=== PATIENT | female | born 1995 | race Caucasian/White ===

== ENCOUNTER 2020-10-04 13:52 | Outpatient (CLI) | payer OTHER | END 2020-10-04 13:53 | disposition home or self-care (01) | LOC: CSHULT 13:52 | PROVIDERS: ATTEND Physician Assistant | DX: N94.10 Unspecified dyspareunia (principal) | CPT/HCPCS: 76856 ==

== ENCOUNTER 2022-08-02 19:35 | Emergency (ER) | payer BC ==
[2022-08-02] MEDS ORDERED: Ketorolac Tromethamine 30 MG/ML VIAL ONE (20:33)
[2022-08-02 20:58] LABS: Pregnancy Test - Urine (BHCG) Negative (Negative); Pregu Control Background? CLEAR/WHITE (CLR/WHITE); Pregu Control Bar Appear? YES (CONTROL BAR)
== END 2022-08-02 21:10 | disposition home or self-care (01) ==
LOC: CSHERS 19:35
DX: R51.9 Headache, unspecified (principal)
CPT/HCPCS: 81025; 96372; 99283; J1885